=== PATIENT | female | born 1960 | race Caucasian/White ===

== ENCOUNTER 2019-12-28 19:46 | Emergency (ER) | payer OTHER ==
[2019-12-28] MEDS ORDERED: NS IV 1000 ML 1,000 ML IV SCH (19:55)
[2019-12-28] MEDS ORDERED: TETANUS,DIPTH,PERTUSS P/F (BOOSTRIX) 0.5 ML VIAL IM ONE (20:00)
[2019-12-28] MEDS ORDERED: fentaNYL INJECTION 100 MCG/2 ML AMP IVP ONE (20:00)
[2019-12-28] MEDS ORDERED: ONDANSETRON 4 MG/2 ML (SDV) Z0FRAN IVP ONE ×2 (20:00→22:00)
[2019-12-28 20:10] LABS: HEMOGLOBIN 13.2 G/DL (11.5-16.0); MEAN PLATELET VOLUME 9.5 FL (7.4-10.4); WHITE BLOOD COUNT 6.9 10^3/uL (4.3-11.0)
--- NOTE | 2019-12-28 20:10 | ED General ---
General Stated Complaint: FALL/RIGHT WRIST INJURY History of Present Illness Date Seen by Provider: Dec 28, 2019 Time Seen by Provider: 19:50 Initial Comments The patient is a 59-year-old female with a history of hypothyroidism and without other medical problems for which she takes daily medication. She is not on a blood thinner. She presents for evaluation of injury sustained after a mechanical fall from ground level prior to arrival. Patient was walking up to the front door of a family member's house when she tripped on a step and fell forward, striking her face and her right wrist on the door frame as she fell down. She complains of pain to her nose which is swollen and has an apparent mild deformity as well as to her right wrist where swelling and a deformity is also noted. She complains of posterior midline and bilateral paraspinal neck discomfort. She denies pain anywhere else aside from her bilateral knees which she states she struck on the ground but which are not hurting. She denies loss of consciousness, nausea or vomiting or amnesia to events. She is alert and pleasantly and appropriately interactive and in absolutely no acute distress upon initial assessment here in the emergency department. She reports some mild nausea. Allergies and Home Medications Allergies Coded Allergies: Sulfa (Sulfonamide Antibiotics) (Verified Allergy, Unknown, 12/28/19) Home Medications Hydrocodone/Acetaminophen 1 Each Tablet, 1 EACH PO Q6H Prescribed by: YONI RIOS on 12/28/192201 Ibuprofen 800 Mg Tablet, 800 MG PO Q8H PRN for PAIN Prescribed by: YONI RIOS on 12/28/192201 Ondansetron 4 Mg Tab.rapdis, 4 MG PO Q8H Prescribed by: YONI RIOS on 12/28/192201 Patient Home Medication List Home Medication List Reviewed: Yes Review of Systems Review of Systems Constitutional: see HPI All Other Systems Reviewed Negative Unless Noted: Yes (Negative excepted noted.) Past Rqrmkqb-Woxbne-Hdakvt Hx Past Med/Social Hx: Reviewed Nursing Past Med/Soc Hx Patient Social History Recent Foreign Travel: No Contact w/Someone Who Travel: No Family Medical History Reviewed Nursing Family Hx Physical Exam Vital Signs Vital Signs - First Documented 12/28/19 19:50 Temp 36.6 Pulse 80 Resp 18 B/P (MAP) 104/76 (85) Pulse Ox 95 O2 Delivery Room Air Capillary Refill : Height, Weight, BMI Height: '" Weight: lbs. oz. kg; BMI Method: General Appearance: No Apparent Distress Comments This is an older female appearing nontoxic and in no acute distress. Head is normocephalic and with swelling and mild closed deformity to the nose, without midface instability, hemotympanum bilaterally, malocclusion, signs of basilar fracture, other signs of trauma to face or scalp or head or neck. No nasal septal hematoma. Neck is supple and with bilateral low cervical paraspinal and midline tenderness to palpation without erythema, warmth or swelling. Oropharynx is moist. Lungs are clear to auscultation at all stations. There is a normal S1 and S2 without rubs or gallops and capillary refill is appropriate, less than 2 seconds globally. Abdomen is soft, nontender and nondistended. Skin is warm and dry without cyanosis, clubbing or edema. Psychiatrically, the patient demonstrates appropriate mood and affect and is alert. Examination of the back reveals no erythema, warmth, swelling, step-offs or deformities and is without any tenderness anywhere. Pelvis is stable and nontender. Chest wall is without tenderness anywhere and without signs of injury. Right upper extremity with apparent closed deformity to the wrist with associated swelling and te nderness. Moderate pain to the right wrist with any attempt ranging. No tenderness or swelling noted to the right hand or right forearm or right elbow or right shoulder. Right upper extremity is neurovascularly intact with strength 5 out of 5, sensation intact to light touch in median, radial and ulnar nerve distributions, radial pulse 2+, capillary refill less than 2 seconds, hand warm and well-perfused. Bilateral lower extremities without swelling, abrasion or discomfort with ranging at any joints. They are neurovascularly intact with 2+ pulses to DPs and PTs bilaterally. Procedures/Interventions Procedure: closed reduction R wrist fracture Patient Education: Explained Benefits, Explained Risks, Pt. Ack. Understanding Agreement on procedure with pt: Yes Breath Sounds per Auscultation: Clear Heart Sounds per Auscultation: Regular Airway Exam: Mouth opens >2 fingers, Neck Full Range of Motion, Visulation of Uvula Total Time spent in CS 20 mins Splinting and Joint Reduction : Location: R wrist Pre-Proc Neuro Vasc Exam: normal Post-Proc Neuro Vasc Exam: normal Reduction Attempts: 1 Pre-Procedure NV Exam: Yes post joint reduction film: joint reduced Progress Tolerated well Devan wrap: Yes Hand-Made Type: orthoglass Splint Application: Long Arm Progress/Results/Core Measures Suspected Sepsis SIRS Temperature: Pulse: Respiratory Rate: Laboratory Tests 12/28/19 20:03: White Blood Count 6.9 Blood Pressure / Mean: Laboratory Tests 12/28/19 20:03: Creatinine 0.89, Platelet Count 308, Total Bilirubin 0.4 Results/Orders Lab Results Laboratory Tests Test 12/28/19 20:03 Range/Units White Blood Count 6.9 4.3-11.0 10^3/uL Red Blood Count 4.11 L 4.35-5.85 10^6/uL Hemoglobin 13.2 11.5-16.0 G/DL Hematocrit 38 35-52 % Mean Corpuscular Volume 93 80-99 FL Mean Corpuscular Hemoglobin 32 25-34 PG Mean Corpuscular Hemoglobin Concent 35 32-36 G/DL Red Cell Distribution Width 12.5 10.0-14.5 % Platelet Count 308 130-400 10^3/uL Mean Platelet Volume 9.5 7.4-10.4 FL Sodium Level 140 135-145 MMOL/L Potassium Level 3.5 L 3.6-5.0 MMOL/L Chloride Level 103 98-107 MMOL/L Carbon Dioxide Level 24 21-32 MMOL/L Anion Gap 13 5-14 MMOL/L Blood Urea Nitrogen 19 H 7-18 MG/DL Creatinine 0.89 0.60-1.30 MG/DL Estimat Glomerular Filtration Rate > 60 BUN/Creatinine Ratio 21 Glucose Level 137 H 70-105 MG/DL Calcium Level 9.2 8.5-10.1 MG/DL Corrected Calcium 9.0 8.5-10.1 MG/DL Total Bilirubin 0.4 0.1-1.0 MG/DL Aspartate Amino Transf (AST/SGOT) 22 5-34 U/L Alanine Aminotransferase (ALT/SGPT) 19 0-55 U/L Alkaline Phosphatase 67 40-136 U/L Total Protein 6.6 6.4-8.2 GM/DL Albumin 4.3 3.2-4.5 GM/DL My Orders Orders - YONI RIOS MD Cervical Collar: Apply (12/28/19 19:55) Cbc No Diff (12/28/19 19:55) Comprehensive Metabolic Panel (12/28/19 19:55) Ed Iv/Invasive Line Start (12/28/19 19:55) Ns Iv 1000 Ml (Sodium Chloride 0.9%) (12/28/19 19:55) Ondansetron Injection (Zofran Injectio (12/28/19 20:00) Fentanyl Injection (Sublimaze Injection (12/28/19 20:00) Dipht,Pertuss(Acell),Tet Adult (Boostrix (12/28/19 20:00) Wrist 3 View Right (12/28/19 19:55) Ct Head/Face/Cervical Wo (12/28/19 19:55) Forearm 2 View Right (12/28/19 20:02) Hand 3 View Right (12/28/19 20:02) Ketamine Syringe (Ed Only) (Ketamine Syr (12/28/19 21:15) Propofol Injection (Diprivan Injection) (12/28/19 21:15) Ketamine Syringe (Ed Only) (Ketamine Syr (12/28/19 21:30) Ketorolac Injection (Toradol Injection) (12/28/19 21:30) Wrist 2 View Right (12/28/19 21:23) Ondansetron Injection (Zofran Injectio (12/28/19 22:00) Medications Given in ED Current Medications Medications Dose Ordered Sig/Kev Route Start Time Stop Time Status Last Admin Dose Admin Diphtheria/ Tetanus/Acell Pertussis 0.5 ml ONCE ONCE IM 12/28/19 20:00 12/28/19 20:01 DC 12/28/19 21:05 0.5 ML Fentanyl Citrate 50 mcg ONCE ONCE IVP 12/28/19 20:00 12/28/19 20:01 DC 12/28/19 20:05 50 MCG Ketamine HCl 70 mg ONCE ONCE IV 12/28/19 21:15 12/28/19 21:16 DC 12/28/19 21:26 70 MG Ketamine HCl 70 mg ONCE ONCE IV 12/28/19 21:30 12/28/19 21:31 DC 12/28/19 21:40 25 MG Ketorolac Tromethamine 30 mg ONCE ONCE IVP 12/28/19 21:30 12/28/19 21:31 DC 12/28/19 21:25 30 MG Ondansetron HCl 4 mg ONCE ONCE IVP 12/28/19 20:00 12/28/19 20:01 DC 12/28/19 20:05 4 MG Ondansetron HCl 4 mg ONCE ONCE IVP 12/28/19 22:00 12/28/19 22:01 DC 12/28/19 22:17 4 MG Vital Signs/I&O 12/28/19 12/28/19 12/28/19 12/28/19 19:50 21:30 21:30 21:35 Temp 36.6 Pulse 80 99 105 Resp 18 14 14 B/P (MAP) 104/76 (85) 160/99 158/93 Pulse Ox 95 100 99 O2 Delivery Room Air Nasal Cannula Nasal Cannula Nasal Cannula O2 Flow Rate 2.00 2.00 2.00 2.00 12/28/19 12/28/19 12/28/19 21:40 21:45 21:50 Pulse 108 110 103 Resp 14 14 18 B/P (MAP) 154/91 156/91 171/105 Pulse Ox 99 99 99 O2 Delivery Nasal Cannula Nasal Cannula Nasal Cannula O2 Flow Rate 2.00 2.00 Capillary Refill : Progress Note : Time: 20:10 Progress Note 59-year-old female presents alert and oriented with appropriate vital signs a fter injuries as described above in the setting of a mechanical ground-level fall just prior to arrival. Cervical collar placed. We'll obtain advanced imaging of head, maxillofacial region and cervical spine and will obtain plain films of right upper extremity and will check basic labs and give medication for nausea and discomfort as well as some IV fluids and will then reevaluate. We'll update tetanus. 0: patient with minimally displaced nasal bone fractures as noted, as well as minimally displaced distal radioulnar wrist fracture. Patient sedated with ketamine and wrist fracture reduced and splinted; patient tolerated the pro cedure well. Post-reduction films demonstrate improved alignment and the RUE is NVI after reduction. We'll observe the patient back to her neurocognitive baseline and then discharge with sling for comfort, medication for discomfort and referral to orthopedics and ENT. 2300: Recovered back to baseline. In NAD, AAOx4. to drive home. Will proceed with discharge. The patient understands that if she feels worse is that of better or develops other new symptoms of concern that she will need to return to the emergency department immediately for reevaluation. All questions are answered. Diagnostic Imaging Comments Date of Exam:12/28/19 FOREARM 2 VIEW RIGHT INDICATION: Right forearm injury, fall COMPARISON: None FINDINGS: Two views of the right forearm demonstrate angulated slightly displaced distal radial fracture. There is nondisplaced ulnar styloid fracture. The elbow and remainder of the forearm are intact. IMPRESSION: Distal radial and ulnar fractures. Dictated by: Dictated on workstation # [id number] Dict: 12/28/192053 Trans: 12/28/192111 [facility] [id number] Interpreted by: ELEANOR EWING Electronically signed by: ELEANOR EWING 12/28/192111 Date of Exam:12/28/19 HAND 3 VIEW RIGHT INDICATION: Right hand injury. COMPARISON: None FINDINGS: Three views of the right hand demonstrate known distal radial fracture. There is a nondisplaced ulnar styloid fracture. No additional hand injury is seen. There is no foreign body. IMPRESSION: Distal radial and ulnar fractures. Dictated by: Dictated on workstation # [id number] Dict: 12/28/192053 Trans: 12/28/192111 [facility] [id number] Interpreted by: ELEANOR EWING Electronically signed by: ELEANOR EWING 12/28/192111 WRIST 3 VIEW RIGHT INDICATION: Right wrist injury, fall COMPARISON: None FINDINGS: 3 views of the right wrist demonstrate angulated slightly displaced distal radial fracture. The carpal bones appear intact. Questionable ulnar styloid fracture seen. IMPRESSION: Distal radial fracture. Dictated by: Dictated on workstation # [id number] Dict: 12/28/192052 Trans: 12/28/192102 [facility] [id number] Interpreted by: ELEANOR EWING Electronically signed by: ELEANOR EWING 12/28/192102 Signed Date of Exam:12/28/19 CT HEAD/FACE/CERVICAL WO PROCEDURE: CT head, face, and cervical spine without contrast. TECHNIQUE: Multiple contiguous axial images were obtained through the head, neck, and facial bones without the use of intravenous contrast. Sagittal and coronal reformations through the cervical spine and facial bones were also performed. Auto Exposure Controls were utilized during the CT exam to meet ALARA standards for radiation dose reduction. INDICATION: Fall, head, neck, face injury. COMPARISON: None CT HEAD: Ventricles are normal in size, shape, and position. There is no midline shift or mass effect. There is no hemorrhage or evidence of acute ischemia. There is no skull fracture. The paranasal sinuses and mastoids are grossly unremarkable. IMPRESSION: No acute intracranial abnormalities. CT cervical spine: Alignment is normal. There is no subluxation or fracture. Mild degenerative changes are present. There is no osseous lesion. IMPRESSION: No traumatic malalignment or fracture CT face: Slightly depressed comminuted nasal bone fracture seen. The nasal septum is slightly deviated but likely chronic. The mandible appears normal. The zygomatic arches are intact. The orbits are symmetric. IMPRESSION: Nasal bone fracture with slight depression. Dictated by: Dictated on workstation # [id number] Dict: 12/28/192049 Trans: 12/28/192102 [facility] [id number] Interpreted by: ELEANOR EWING Electronically signed by: ELEANOR EWING 12/28/192102 Departure Impression Primary Impression: Fall from slip, trip, or stumble Qualified Codes: W01.0XXA - Fall on same level from slipping, tripping and stumbling without subsequent striking against object, initial encounter Additional Impressions: Colles' fracture of right radius, initial encounter for closed fracture Nasal bones, closed fracture Qualified Codes: S02.2XXA - Fracture of nasal bones, initial encounter for closed fracture Disposition: 01 HOME, SELF-CARE Condition: Improved Departure-Patient Inst. Referrals: GILBERTO CREWS MD (PCP/Family) Primary Care Physician Patient Instructions: Colles' Fracture (DC), Nose Fracture (DC) Add. Discharge Instructions: Follow-up very closely with an orthopedic physician of your choice in the next 2-4 days in the office for further evaluation and treatment of your wrist fracture. In the meantime, keep your splint clean and dry, rest, ice and elevate your injured extremity and take ibuprofen every 8 hours for discomfort, with food or milk to prevent stomach upset. You may take a Spencer pill every 6 hours for pain that is not well controlled with ibuprofen alone. Be careful because Spencer can make you sleepy so don't drive or workup or machinery while taking it. You may take Zofran every 8 hours as needed for nausea. Follow-up very closely with an ENT physician of your choice in the next 2-4 days in the office for further evaluation and treatment of your nasal bone fracture. In the meantime, do not blow your nose. For any nose bleed, apply direct pressure to the bridge of your nose for 15 minutes. Return to the emergency department right away with worsening symptoms of any kind or with any other new symptoms of concern. Scripts Hydrocodone/Acetaminophen (Hydrocodone-Acetamin 5-325 mg) 1 Each Tablet 1 EACH PO Q6H for Breakthrough Pain, #9 TAB Prov: YONI RIOS MD 12/28/19 Ondansetron (Ondansetron Odt) 4 Mg Tab.rapdis 4 MG PO Q8H for Nausea, #10 TAB Prov: YONI RIOS MD 12/28/19 Ibuprofen (Ibuprofen) 800 Mg Tablet 800 MG PO Q8H PRN for PAIN, #30 TAB 0 Refills Prov: YONI RIOS MD 12/28/19 YONI RIOS MD Dec 28, 2019 20:10
[2019-12-28 20:29] LABS: ALANINE AMINOTRANSFERASE 19 U/L (0-55); ALBUMIN 4.3 GM/DL (3.2-4.5); ALKALINE PHOSPHATASE 67 U/L (40-136); BILIRUBIN,TOTAL 0.4 MG/DL (0.1-1.0); BUN/CREATININE RATIO 21; CALCIUM 9.2 MG/DL (8.5-10.1); CARBON DIOXIDE 24 MMOL/L (21-32); CHLORIDE 103 MMOL/L (98-107); CREATININE SERUM 0.89 MG/DL (0.60-1.30); GFR ESTIMATED > 60; GLUCOSE 137 MG/DL (70-105); POTASSIUM 3.5 MMOL/L (3.6-5.0); SODIUM 140 MMOL/L (135-145); TOTAL PROTEIN 6.6 GM/DL (6.4-8.2)
--- NOTE | 2019-12-28 21:02 | Diagnostic Imaging Report ---
PROCEDURE: CT head, face, and cervical spine without contrast. TECHNIQUE: Multiple contiguous axial images were obtained through the head, neck, and facial bones without the use of intravenous contrast. Sagittal and coronal reformations through the cervical spine and facial bones were also performed. Auto Exposure Controls were utilized during the CT exam to meet ALARA standards for radiation dose reduction. INDICATION: Fall, head, neck, face injury. COMPARISON: None CT HEAD: Ventricles are normal in size, shape, and position. There is no midline shift or mass effect. There is no hemorrhage or evidence of acute ischemia. There is no skull fracture. The paranasal sinuses and mastoids are grossly unremarkable. IMPRESSION: No acute intracranial abnormalities. CT cervical spine: Alignment is normal. There is no subluxation or fracture. Mild degenerative changes are present. There is no osseous lesion. IMPRESSION: No traumatic malalignment or fracture CT face: Slightly depressed comminuted nasal bone fracture seen. The nasal septum is slightly deviated but likely chronic. The mandible appears normal. The zygomatic arches are intact. The orbits are symmetric. IMPRESSION: Nasal bone fracture with slight depression. Dictated by: Dictated on workstation # [id number]
--- NOTE | 2019-12-28 21:03 | Diagnostic Imaging Report ---
INDICATION: Right wrist injury, fall COMPARISON: None FINDINGS: 3 views of the right wrist demonstrate angulated slightly displaced distal radial fracture. The carpal bones appear intact. Questionable ulnar styloid fracture seen. IMPRESSION: Distal radial fracture. Dictated by: Dictated on workstation # [id number]
--- NOTE | 2019-12-28 21:04 | Diagnostic Imaging Report ---
INDICATION: Right hand injury. COMPARISON: None FINDINGS: Three views of the right hand demonstrate known distal radial fracture. There is a nondisplaced ulnar styloid fracture. No additional hand injury is seen. There is no foreign body. IMPRESSION: Distal radial and ulnar fractures. Dictated by: Dictated on workstation # [id number]
--- NOTE | 2019-12-28 21:04 | Diagnostic Imaging Report ---
INDICATION: Right forearm injury, fall COMPARISON: None FINDINGS: Two views of the right forearm demonstrate angulated slightly displaced distal radial fracture. There is nondisplaced ulnar styloid fracture. The elbow and remainder of the forearm are intact. IMPRESSION: Distal radial and ulnar fractures. Dictated by: Dictated on workstation # [id number]
[2019-12-28] MEDS ORDERED: proPOfol 200 MG/20 ML (DIPRIVAN) VIAL IV ONE (21:15)
[2019-12-28] MEDS ORDERED: KETAMINE/NaCl 50 MG/5 ML SYRINGE (ED ONLY) IV ONE ×2 (21:15→21:30)
[2019-12-28] MEDS ORDERED: KETOROLAC 30 MG/ML VIAL IVP ONE (21:30)
[2019-12-28] MEDS ORDERED: IBUP-1780 PO (22:02)
[2019-12-28] MEDS ORDERED: ONDA4TAB11 PO (22:02)
[2019-12-28] MEDS ORDERED: ACHD5005 PO (22:02)
--- NOTE | 2019-12-28 22:12 | Diagnostic Imaging Report ---
INDICATION: Postreduction. COMPARISON: 12/28/2019 at 8:13 p.m. EXAMINATION: Two views of the right wrist. FINDINGS: Essentially stable fracture alignment. No additional injury seen. IMPRESSION: Stable, unchanged distal radial and ulnar fractures. Dictated by: Dictated on workstation # [id number]
[2019-12-28 23:20] VITALS: BP 125/67
[2019-12-28] MEDS ORDERED: RX-HYDROCODONE/APAP 5/325 MG #4 TAB PK PO PRN (23:30)
== END 2019-12-28 23:52 | disposition home or self-care (01) ==
LOC: ER FS 19:53
DX: S52.531A Colles' fracture of right radius, initial encounter for closed fracture (principal); S02.2XXA Fracture of nasal bones, initial encounter for closed fracture; E03.9 Hypothyroidism, unspecified; Z88.2 Allergy status to sulfonamides; Z23 Encounter for immunization; W01.198A Fall on same level from slipping, tripping and stumbling with subsequent striking against other object, initial encounter
CPT/HCPCS: 36415; 70450; 70486; 72125; 73090; 73100; 73110; 73130; 80053; 85027; 90715; 93041

== ENCOUNTER 2022-08-17 21:52 | Emergency (ER) | payer OTHER ==
[~2022-08-17] VITALS: Ht 165 cm; Wt 74.8 kg
[~2022-08-17 21:52] MED LIST: ACHD5005 PO; IBUP-1780 PO; ONDA4TAB11 PO
[2022-08-17] MEDS ORDERED: NS IV 1000 ML 1,000 ML IV STA (22:02)
--- NOTE | 2022-08-17 22:05 | ED General ---
General Stated Complaint: LETHARGIC,DIZZY,LOW BP,LIGHTHEADED History of Present Illness Date Seen by Provider: August 17, 2022 Time Seen by Provider: 22:04 Initial Comments 62-year-old female presents with a feeling just some fatigue [place] like she was a little bit dizzy reports that her blood pressure seemed a little lower than normal as 95/60. She reports that she was eating when she just got really fatigued. She has a little bit of a scratchy throat. No cough, dysuria or other systemic complaints. Symptoms have improved somewhat but she still just feels little fatigued. Allergies and Home Medications Allergies Coded Allergies: Sulfa (Sulfonamide Antibiotics) (Verified Allergy, Unknown, 12/28/19) Patient Home Medication List Home Medication List Reviewed: Yes Hydrocodone/Acetaminophen (Hydrocodone-Acetamin 5-325 mg) 1 Each Tablet, 1 EACH PO Q6H Prescribed by: YONI RIOS on 12/28/192201 Ibuprofen (Ibuprofen) 800 Mg Tablet, 800 MG PO Q8H PRN for PAIN Prescribed by: YONI RIOS on 12/28/192201 Ondansetron (Ondansetron Odt) 4 Mg Tab.rapdis, 4 MG PO Q8H Prescribed by: YONI RIOS on 12/28/192201 Review of Systems Review of Systems Constitutional: No chills; dizziness; No fever; malaise EENTM: see HPI Respiratory: no symptoms reported Cardiovascular: no symptoms reported Gastrointestinal: No abdominal pain, No nausea, No vomiting Musculoskeletal: no symptoms reported Skin: no symptoms reported Psychiatric/Neurological: No Symptoms Reported Past [id number] Hx Past Medical History Surgeries: No Respiratory: No Cardiac: No Neurological: No Genitourinary: No Gastrointestinal: No Musculoskeletal: No Endocrine: Yes Hypothyroidsim HEENT: No Cancer: No Psychosocial: No Integumentary: No Blood Disorders: No Physical Exam Vital Signs Vital Signs - First Documented 08/17/22 21:55 Temp 36.7 Pulse 88 Resp 20 B/P (MAP) 116/68 (84) Pulse Ox 96 O2 Delivery Room Air Capillary Refill : Height, Weight, BMI Height: '" Weight: lbs. oz. kg; BMI Method: General Appearance: No Apparent Distress, WD/WN HEENT: PERRL/EOMI, Pharynx Normal, Moist Mucous Membranes Respiratory: Lungs Clear Cardiovascular: Regular Rate, Rhythm Gastrointestinal: Non Tender, Soft Extremity: Normal Capillary Refill, Normal Range of Motion Neurologic/Psychiatric: Alert, Oriented x3, No Motor/Sensory Deficits, Normal Mood/Affect, zmt operator II-XII Norm as Tested; No Abnormal Gait Skin: Normal Color, Warm/Dry Procedures/Interventions Patient Education: Explained Benefits, Explained Risks, Pt. Ack. Understanding Breath Sounds per Auscultation: Clear Heart Sounds per Auscultation: Regular Airway Exam: Mouth opens >2 fingers, Neck Full Range of Motion, Visulation of Uvula Progress/Results/Core Measures Suspected Sepsis SIRS Temperature: Pulse: Respiratory Rate: Laboratory Tests 08/17/22 22:00: White Blood Count 6.5 Blood Pressure / Mean: Laboratory Tests 08/17/22 22:00: Creatinine 0.77, Platelet Count 287, Total Bilirubin 0.4 Results/Orders Lab Results Laboratory Tests Test 08/17/22 22:00 Range/Units White Blood Count 6.5 4.3-11.0 10^3/uL Red Blood Count 4.28 3.80-5.11 10^6/uL Hemoglobin 13.7 11.5-16.0 g/dL Hematocrit 39 35-52 % Mean Corpuscular Volume 92 80-99 fL Mean Corpuscular Hemoglobin 32 25-34 pg Mean Corpuscular Hemoglobin Concent 35 32-36 g/dL Red Cell Distribution Width 12.6 10.0-14.5 % Platelet Count 287 130-400 10^3/uL Mean Platelet Volume 9.2 9.0-12.2 fL Immature Granulocyte % (Auto) 0 % Neutrophils (%) (Auto) 57 42-75 % Lymphocytes (%) (Auto) 32 12-44 % Monocytes (%) (Auto) 9 0-12 % Eosinophils (%) (Auto) 1 0-10 % Basophils (%) (Auto) 1 0-10 % Neutrophils # (Auto) 3.7 1.8-7.8 10^3/uL Lymphocytes # (Auto) 2.1 1.0-4.0 10^3/uL Monocytes # (Auto) 0.6 0.0-1.0 10^3/uL Eosinophils # (Auto) 0.1 0.0-0.3 10^3/uL Basophils # (Auto) 0.0 0.0-0.1 10^3/uL Immature Granulocyte # (Auto) 0.0 0.0-0.1 10^3/uL Urine Color YELLOW Urine Clarity SL CLOUDY Urine pH 6.0 5-9 Urine Specific [place] 1.020 1.016-1.022 Urine Protein NEGATIVE NEGATIVE Urine Glucose (UA) NEGATIVE NEGATIVE Urine Ketones TRACE H NEGATIVE Urine Nitrite NEGATIVE NEGATIVE Urine Bilirubin NEGATIVE NEGATIVE Urine Urobilinogen 0.2 < = 1.0 MG/DL Urine Leukocyte Esterase 1+ H NEGATIVE Urine RBC (Auto) NEGATIVE NEGATIVE Urine RBC NONE /HPF Urine WBC 10-25 H /HPF Urine Squamous Epithelial Cells 2-5 /HPF Urine Crystals NONE /LPF Urine Bacteria TRACE /HPF Urine Casts NONE /LPF Urine Mucus MODERATE H /LPF Urine Culture Indicated YES Sodium Level 138 135-145 MMOL/L Potassium Level 3.0 L 3.6-5.0 MMOL/L Chloride Level 97 L 98-107 MMOL/L Carbon Dioxide Level 27 21-32 MMOL/L Anion Gap 14 5-14 MMOL/L Blood Urea Nitrogen 21 H 7-18 MG/DL Creatinine 0.77 0.60-1.30 MG/DL Estimat Glomerular Filtration Rate 88 BUN/Creatinine Ratio 27 Glucose Level 152 H 70-105 MG/DL Calcium Level 9.6 8.5-10.1 MG/DL Corrected Calcium 9.3 8.5-10.1 MG/DL Magnesium Level 2.4 1.6-2.4 MG/DL Total Bilirubin 0.4 0.1-1.0 MG/DL Aspartate Amino Transf (AST/SGOT) 15 5-34 U/L Alanine Aminotransferase (ALT/SGPT) 12 0-55 U/L Alkaline Phosphatase 80 40-136 U/L C-Reactive Protein < 0.30 <0.50 MG/DL Total Protein 6.9 6.4-8.2 GM/DL Albumin 4.4 3.2-4.5 GM/DL My Orders Orders - RAYA,SHEFALI L DO Cbc With Automated Diff (08/17/22 22:02) Comprehensive Metabolic Panel (08/17/22 22:02) Magnesium (08/17/22 22:02) Ua Culture If Indicated (08/17/22 22:02) Crp Fs (08/17/22 22:02) Ns Iv 1000 Ml (Sodium Chloride 0.9%) (08/17/22 22:02) Urine Culture (08/17/22 22:00) Vital Signs/I&O 08/17/22 21:55 Temp 36.7 Pulse 88 Resp 20 B/P (MAP) 116/68 (84) Pulse Ox 96 O2 Delivery Room Air Capillary Refill : Progress Note : Progress Note Patient's blood pressure was appropriate throughout her stay in the ER. Patient's labs were ordered reviewed with interpretation by me. She does show some hypokalemia which she reports is chronic and that she is supposed to take potassium but does not always remember to. She reports that her last 1 was 2.7 so it is up at this time to 3.0. Recommended she attempt to take her potassium to help keep it elevated. Patient's white count and labs show no other significant acute findings. She does have a urine that has some small amount of WBCs and leukocyte Estrace however she does not have any any urinary symptoms so we will await cultures at this time. Discussed with her that we will notify her if her cultures come back positive. Patient was stable and discharged home. Departure Impression Primary Impression: Fatigue Qualified Codes: R53.83 - Other fatigue Additional Impressions: Dizziness, nonspecific Hypokalemia Disposition: HOME, SELF-CARE Condition: Stable Departure-Patient Inst. Referrals: GILBERTO CREWS MD (PCP/Family) Primary Care Physician Patient Instructions: Dizziness, Adult ED, Dealing with Dizziness from the Drugs You Take Add. Discharge Instructions: Follow-up with your primary care provider if symptoms are not improving over the next couple days or with any other concerns SHEFALI RAYA DO August 17, 2022 22:05
[2022-08-17 22:16] LABS: BILIRUBIN,URINE NEGATIVE (NEGATIVE); CLARITY,URINE SL CLOUDY; COLOR,URINE YELLOW; GLUCOSE, URINE (UA) NEGATIVE (NEGATIVE); KETONES,URINE TRACE (NEGATIVE); LEUKOCYTE ESTERASE ,URINE 1+ (NEGATIVE); NITRITE,URINE NEGATIVE (NEGATIVE); PROTEIN,URINE NEGATIVE (NEGATIVE)
[2022-08-17 22:17] LABS: BASOPHILS % (AUTO) 1 % (0-10); EOSINOPHILS # (AUTO) 0.1 10^3/uL (0.0-0.3); EOSINOPHILS % (AUTO) 1 % (0-10); HEMATOCRIT 39 % (35-52); HEMOGLOBIN 13.7 g/dL (11.5-16.0); LYMPHOCYTES # (AUTO) 2.1 10^3/uL (1.0-4.0); LYMPHOCYTES % (AUTO) 32 % (12-44); MEAN CORPUSCULAR HEMOGLOBIN 32 pg (25-34); MEAN CORPUSCULAR HGB CONC 35 g/dL (32-36); MEAN CORPUSCULAR VOLUME 92 fL (80-99); MEAN PLATELET VOLUME 9.2 fL (9.0-12.2); MONOCYTES # (AUTO) 0.6 10^3/uL (0.0-1.0); MONOCYTES % (AUTO) 9 % (0-12); NEUTROPHILS # (AUTO) 3.7 10^3/uL (1.8-7.8); NEUTROPHILS % (AUTO) 57 % (42-75); PLATELET COUNT 287 10^3/uL (130-400); WHITE BLOOD COUNT 6.5 10^3/uL (4.3-11.0)
[2022-08-17 22:24] LABS: BACTERIA,URINE TRACE /HPF
[2022-08-17 22:38] LABS: ALANINE AMINOTRANSFERASE 12 U/L (0-55); ALBUMIN 4.4 GM/DL (3.2-4.5); ALKALINE PHOSPHATASE 80 U/L (40-136); BILIRUBIN,TOTAL 0.4 MG/DL (0.1-1.0); BUN/CREATININE RATIO 27; CALCIUM 9.6 MG/DL (8.5-10.1); CARBON DIOXIDE 27 MMOL/L (21-32); CHLORIDE 97 MMOL/L (98-107); CREATININE SERUM 0.77 MG/DL (0.60-1.30); GFR ESTIMATED 88; GLUCOSE 152 MG/DL (70-105); MAGNESIUM 2.4 MG/DL (1.6-2.4); SODIUM 138 MMOL/L (135-145); TOTAL PROTEIN 6.9 GM/DL (6.4-8.2)
[2022-08-17 22:58] VITALS: BP 97/70
== END 2022-08-17 22:58 | disposition home or self-care (01) ==
LOC: EDUNIT# 21:52 → ER FS 21:54
DX: R53.83 Other fatigue (principal); E87.6 Hypokalemia
CPT/HCPCS: 36415; 80053; 81000; 83735; 85025; 86141; 87088

== ENCOUNTER 2022-09-12 00:16 | Emergency (ER) | payer OTHER ==
[~2022-09-12] VITALS: Ht 165.1 cm; Wt 72.0 kg
[2022-09-12 00:23] VITALS: BP 118/83
--- NOTE | 2022-09-12 00:31 | ED General ---
General Stated Complaint: VOMITING|NOT EATING|SLEEPING History of Present Illness Date Seen by Provider: Sep 12, 2022 Time Seen by Provider: 00:31 Initial Comments 62-year-old female presents with generalized malaise, having a hard time eating and sleeping. She has had 1 episode of vomiting yesterday. Patient has just returned from a trip from [place] and has had difficulty getting sleep. Has just generalized malaise, decreased appetite, no fevers chills cough or other systemic complaints her main complaint is just generalized fatigue and sleeping issues. Allergies and Home Medications Allergies Coded Allergies: Sulfa (Sulfonamide Antibiotics) (Verified Allergy, Unknown, 12/28/19) Patient Home Medication List Home Medication List Reviewed: Yes Hydrocodone/Acetaminophen (Hydrocodone-Acetamin 5-325 mg) 1 Each Tablet, 1 EACH PO Q6H Prescribed by: YONI RIOS on 12/28/192201 Ibuprofen (Ibuprofen) 800 Mg Tablet, 800 MG PO Q8H PRN for PAIN Prescribed by: YONI RIOS on 12/28/192201 Ondansetron (Ondansetron Odt) 4 Mg Tab.rapdis, 4 MG PO Q8H Prescribed by: YONI RIOS on 12/28/192201 Review of Systems Review of Systems Constitutional: No chills, No fever; malaise Respiratory: no symptoms reported Cardiovascular: no symptoms reported Gastrointestinal: see HPI Genitourinary: no symptoms reported Musculoskeletal: no symptoms reported Skin: no symptoms reported Psychiatric/Neurological: No Symptoms Reported Past [id number] Hx Immunizations Up To Date First/Initial COVID19 Vaccinat: unknown Past Medical History Surgeries: No Respiratory: No Cardiac: No Neurological: No Genitourinary: No Gastrointestinal: No Musculoskeletal: No Endocrine: Yes Hypothyroidsim HEENT: No Cancer: No Psychosocial: No Integumentary: No Blood Disorders: No Physical Exam Vital Signs Vital Signs - First Documented 09/12/22 00:23 Temp 36.6 Pulse 86 Resp 16 B/P (MAP) 118/83 (95) Capillary Refill : Height, Weight, BMI Height: '" Weight: lbs. oz. kg; 27.00 BMI Method: General Appearance: No Apparent Distress, WD/WN Respiratory: Lungs Clear, Normal Breath Sounds, No Accessory Muscle Use Cardiovascular: Regular Rate, Rhythm, No Edema Extremity: Normal Capillary Refill, Normal Inspection, Normal Range of Motion Neurologic/Psychiatric: Alert, Oriented x3, No Motor/Sensory Deficits, Normal Mood/Affect, air conditioning mechanic II-XII Norm as Tested Procedures/Interventions Patient Education: Explained Benefits, Explained Risks, Pt. Ack. Understanding Breath Sounds per Auscultation: Clear Heart Sounds per Auscultation: Regular Airway Exam: Mouth opens >2 fingers, Neck Full Range of Motion, Visulation of Uvula Progress/Results/Core Measures Suspected Sepsis SIRS Temperature: Pulse: Respiratory Rate: Laboratory Tests 09/12/22 00:50: White Blood Count 6.0 Blood Pressure / Mean: Laboratory Tests 09/12/22 00:50: Creatinine 0.75, Platelet Count 264, Total Bilirubin 0.6 Results/Orders Lab Results Laboratory Tests Test 09/12/22 00:45 09/12/22 00:50 Range/Units Urine Color DARK YELLOW Urine Clarity CLEAR Urine pH 6.0 5-9 Urine Specific [place] 1.015 L 1.016-1.022 Urine Protein TRACE H NEGATIVE Urine Glucose (UA) NEGATIVE NEGATIVE Urine Ketones 3+ H NEGATIVE Urine Nitrite NEGATIVE NEGATIVE Urine Bilirubin 1+ H NEGATIVE Urine Urobilinogen 0.2 < = 1.0 MG/DL Urine Leukocyte Esterase TRACE H NEGATIVE Urine RBC (Auto) NEGATIVE NEGATIVE Urine RBC 2-5 H /HPF Urine WBC 5-10 H /HPF Urine Squamous Epithelial Cells 5-10 /HPF Urine Crystals PRESENT H /LPF Urine Calcium Oxalate Crystals FEW H /LPF Urine Bacteria FEW H /HPF Urine Casts NONE /LPF Urine Mucus LARGE H /LPF Urine Culture Indicated YES White Blood Count 6.0 4.3-11.0 10^3/uL Red Blood Count 4.90 3.80-5.11 10^6/uL Hemoglobin 15.6 11.5-16.0 g/dL Hematocrit 45 35-52 % Mean Corpuscular Volume 91 80-99 fL Mean Corpuscular Hemoglobin 32 25-34 pg Mean Corpuscular Hemoglobin Concent 35 32-36 g/dL Red Cell Distribution Width 12.9 10.0-14.5 % Platelet Count 264 130-400 10^3/uL Mean Platelet Volume 9.3 9.0-12.2 fL Immature Granulocyte % (Auto) 0 % Neutrophils (%) (Auto) 78 H 42-75 % Lymphocytes (%) (Auto) 11 L 12-44 % Monocytes (%) (Auto) 10 0-12 % Eosinophils (%) (Auto) 0 0-10 % Basophils (%) (Auto) 0 0-10 % Neutrophils # (Auto) 4.7 1.8-7.8 10^3/uL Lymphocytes # (Auto) 0.7 L 1.0-4.0 10^3/uL Monocytes # (Auto) 0.6 0.0-1.0 10^3/uL Eosinophils # (Auto) 0.0 0.0-0.3 10^3/uL Basophils # (Auto) 0.0 0.0-0.1 10^3/uL Immature Granulocyte # (Auto) 0.0 0.0-0.1 10^3/uL Sodium Level 139 135-145 MMOL/L Potassium Level 3.2 L 3.6-5.0 MMOL/L Chloride Level 99 98-107 MMOL/L Carbon Dioxide Level 23 21-32 MMOL/L Anion Gap 17 H 5-14 MMOL/L Blood Urea Nitrogen 13 7-18 MG/DL Creatinine 0.75 0.60-1.30 MG/DL Estimat Glomerular Filtration Rate 91 BUN/Creatinine Ratio 17 Glucose Level 115 H 70-105 MG/DL Calcium Level 9.3 8.5-10.1 MG/DL Corrected Calcium 9.1 8.5-10.1 MG/DL Total Bilirubin 0.6 0.1-1.0 MG/DL Aspartate Amino Transf (AST/SGOT) 27 5-34 U/L Alanine Aminotransferase (ALT/SGPT) 14 0-55 U/L Alkaline Phosphatase 78 40-136 U/L Total Protein 7.2 6.4-8.2 GM/DL Albumin 4.3 3.2-4.5 GM/DL Lipase 31 8-78 U/L My Orders Orders - RAYA,SHEFALI L DO Ondansetron Injection (Zofran Injectio (09/12/22 00:45) Lactated Ringers (Lr 1000 Ml Iv Solution (09/12/22 00:34) Cbc With Automated Diff (09/12/22 00:34) Comprehensive Metabolic Panel (09/12/22 00:34) Lipase (09/12/22 00:34) Ua Culture If Indicated (09/12/22 00:34) Urine Culture (09/12/22 00:45) Medications Given in ED Current Medications Medications Dose Ordered Sig/Kev Route Start Time Stop Time Status Last Admin Dose Admin Ondansetron HCl 4 mg ONCE ONCE IVP 09/12/22 00:45 09/12/22 00:46 DC 09/12/22 00:49 4 MG Vital Signs/I&O 09/12/22 00:23 Temp 36.6 Pulse 86 Resp 16 B/P (MAP) 118/83 (95) Capillary Refill : Progress Note : Progress Note Patient's diagnostic studies were ordered reviewed and interpreted by me. Patient had no acute concerning findings on her CBC or CMP. Patient had a urine that was questionable for urinary tract infection however she denies any symptoms. Since she is not having any urinary symptoms will await culture to determine if treatment is indicated. Patient's physical exam was benign. She was concerned about dehydration but there is no acute signs of dehydration. Patient had similar symptoms with a negative exam a month ago just for a few days prior to her leaving for [place] which she was seen by me with another benign exam and labs. Patient is likely experiencing jet lag with her main complaint being sleeping issues and fatigue. Patient was given 1 L IV fluids because of her concern about dehydration however there is no physical or lab indications of any significant dehydration. She should follow-up with her primary care provider if her symptoms continue for further outpatient evaluation. Patient is at increased risk of morbidity and mortality based on social determinants of health. Departure Impression Primary Impression: Jet lag syndrome Additional Impression: Malaise and fatigue Disposition: HOME, SELF-CARE Condition: Stable Departure-Patient Inst. Referrals: GILBERTO CREWS MD (PCP/Family) Primary Care Physician Patient Instructions: Jet Lag, Weakness ED Add. Discharge Instructions: Follow-up with your primary care provider as needed SHEFALI RAYA DO Sep 12, 2022 00:31
[2022-09-12] MEDS ORDERED: LACTATED RINGERS 1,000 ML IV STA (00:34)
[2022-09-12] MEDS ORDERED: ONDANSETRON 4 MG/2 ML (SDV) Z0FRAN IVP ONE (00:45)
[2022-09-12 00:57] LABS: BASOPHILS % (AUTO) 0 % (0-10); EOSINOPHILS % (AUTO) 0 % (0-10); HEMATOCRIT 45 % (35-52); HEMOGLOBIN 15.6 g/dL (11.5-16.0); LYMPHOCYTES # (AUTO) 0.7 10^3/uL (1.0-4.0); LYMPHOCYTES % (AUTO) 11 % (12-44); MEAN CORPUSCULAR HEMOGLOBIN 32 pg (25-34); MEAN CORPUSCULAR HGB CONC 35 g/dL (32-36); MEAN CORPUSCULAR VOLUME 91 fL (80-99); MEAN PLATELET VOLUME 9.3 fL (9.0-12.2); MONOCYTES # (AUTO) 0.6 10^3/uL (0.0-1.0); MONOCYTES % (AUTO) 10 % (0-12); NEUTROPHILS # (AUTO) 4.7 10^3/uL (1.8-7.8); NEUTROPHILS % (AUTO) 78 % (42-75); PLATELET COUNT 264 10^3/uL (130-400)
[2022-09-12 00:57] LABS: CLARITY,URINE CLEAR; GLUCOSE, URINE (UA) NEGATIVE (NEGATIVE); KETONES,URINE 3+ (NEGATIVE); LEUKOCYTE ESTERASE ,URINE TRACE (NEGATIVE); NITRITE,URINE NEGATIVE (NEGATIVE); PROTEIN,URINE TRACE (NEGATIVE)
[2022-09-12 01:03] LABS: BACTERIA,URINE FEW /HPF; CALCIUM OXALATE CRYSTALS,UR FEW /LPF; COLOR,URINE DARK YELLOW
[2022-09-12 01:04] LABS: BILIRUBIN,URINE 1+ (NEGATIVE)
[2022-09-12 01:21] LABS: ALBUMIN 4.3 GM/DL (3.2-4.5); BILIRUBIN,TOTAL 0.6 MG/DL (0.1-1.0); CALCIUM 9.3 MG/DL (8.5-10.1); CREATININE SERUM 0.75 MG/DL (0.60-1.30); POTASSIUM 3.2 MMOL/L (3.6-5.0); TOTAL PROTEIN 7.2 GM/DL (6.4-8.2)
== END 2022-09-12 02:04 | disposition home or self-care (01) ==
LOC: EDUNIT# 00:16 → ER FS 00:19
DX: G47.25 Circadian rhythm sleep disorder, jet lag type (principal)
CPT/HCPCS: 36415; 80053; 81000; 83690; 85025; 87088; 99282